=== PATIENT | female | born 1960 | race Caucasian/White ===

== ENCOUNTER 2016-10-08 15:06 | Emergency (ER) | payer BC ==
--- NOTE | 2016-10-08 15:16 | EDM.PDOC ---
ED HPI GENERAL MEDICAL PROBLEM - General Chief Complaint: Abdominal Pain Stated Complaint: ABD PAINS, [id number] Time Seen by Provider: 10/08/16 15:15 Source of Information: Reports: Patient, Old Records, RN, RN Notes Reviewed History Limitations: Reports: No Limitations - History of Present Illness INITIAL COMMENTS - FREE TEXT/NARRATIVE: Arrives from home by POV with complaint of onset of lower abdominal pain yesterday. Patient thought that it could be from constipation so she took a laxative and had a large BM, but the pain did not subside. Today she developed chills and later a fever of 101F. Patient had a cough and congestion last week but was getting better. Denies urinary symptoms, diarrhea, blood or mucus in the stool or vomiting. Admits to nausea. Location: Reports: Abdomen Quality: Reports: Ache Severity: Severe Improves with: Reports: None Worsens with: Reports: None Associated Symptoms: Reports: No Other Symptoms Lower Abdomen Pain Score (Numeric/FACES): 10 - Related Data Allergies Allergy/AdvReac Type Severity Reaction Status Date / Time No Known Allergies Allergy Verified 10/08/16 15:12 Home Meds: Home Meds . [No Known Home Meds] 10/08/16 [History] Past Medical History Gastrointestinal History: Reports: Diverticulosis Endocrine/Metabolic History: Reports: Obesity/BMI 30+ - Past Surgical History GI Surgical History: Reports: Colonoscopy Social & Family History - Alcohol Use Days Per Week of Alcohol Use: 0 - Recreational Drug Use Recreational Drug Use: No ED ROS GENERAL - Review of Systems Review Of Systems: ROS reveals no pertinent complaints other than HPI. ED EXAM, GI/ABD - Physical Exam Exam: See Below Exam Limited By: No Limitations General Appearance: Alert, WD/WN, Obese Eyes: Bilateral: Normal Appearance Ears: Normal External Exam, Normal Canal, Hearing Grossly Normal, Normal TMs Nose: Normal Inspection, Normal Mucosa, No Blood Throat/Mouth: Normal Inspection, Normal Lips, Normal Teeth, Normal Gums, Normal Oropharynx, Normal Voice, No Airway Compromise Head: Atraumatic, Normocephalic Neck: Normal Inspection, Supple, Non-Tender, Full Range of Motion Respiratory/Chest: Other (occSIONAL DRY COUGH, MILD.) Cardiovascular: Normal Peripheral Pulses, Regular Rate, Rhythm, No Edema, No Gallop, No JVD, No Murmur, No Rub GI/Abdominal: Other (generalized acute tenderness to lower abdomen. Normal bowel sounds. No distention, guarding or rebound tenderness. No rigidity.) (Female) Exam: Deferred Rectal (Female) Exam: Deferred Back Exam: Normal Inspection, Full Range of Motion, NT Extremities: Normal Inspection, Normal Range of Motion, Non-Tender, Normal Capillary Refill, No Pedal Edema Neurological: Alert, Oriented, CN II-XII Intact, Normal Cognition, Normal Gait, Normal Reflexes, No Motor/Sensory Deficits Psychiatric: Normal Affect, Normal Mood Skin Exam: Warm, Dry, Intact, Normal Color, No Rash Course - Vital Signs Last Recorded V/S: Last Vital Signs Temp 38.7 C H 10/08/16 17:43 Pulse 90 10/08/16 17:43 Resp 18 10/08/16 17:43 BP 134/59 L 10/08/16 17:43 Pulse Ox 95 10/08/16 17:43 - Orders/Labs/Meds Orders: Active Orders 24 hr Category Date Time Status Peripheral IV Care [RC] . DIRECTED Care 10/08/16 15:37 Active Sodium Chloride 0.9% [Saline Flush] Med 10/08/16 15:36 Active 10 ml FLUSH ASDIRECTED PRN Peripheral IV Insertion Adult [OM.PC] Stat Oth 10/08/16 15:37 Ordered Medication Orders Sodium Chloride (Saline Flush) 10 ml FLUSH ASDIRECTED PRN PRN Reason: Keep Vein Open Last Admin: 10/08/16 15:47 Dose: 10 ml Labs: Laboratory Tests 10/08/16 10/08/16 10/08/16 Range/Units 15:39 15:39 15:39 WBC 11.6 H (5.0-10.0) 10^3/uL RBC 4.49 (4.2-5.4) 10^6/uL Hgb 12.6 (12.0-16.0) g/dL Hct 39.8 (37.0-47.0) % MCV 88.6 (80-100) fL MCH 28.1 (27.0-34.0) pg MCHC 31.7 L (33.0-35.0) g/dL Plt Count 261 (150-450) 10^3/uL Neut % (Auto) 79.8 H (42.2-75.2) % Lymph % (Auto) 10.5 L (20.5-50.1) % [place] % (Auto) 7.7 (2-8) % Eos % (Auto) 1.7 (1.0-3.0) % Baso % (Auto) 0.3 (0.0-1.0) % Sodium 139 (135-145) mmol/L Potassium 4.2 (3.6-5.0) mmol/L Chloride 104 (101-111) mmol/L Carbon Dioxide 26.0 (21.0-31.0) mmol/L Anion Gap 13.2 BUN 14 (7-18) mg/dL Creatinine 0.9 (0.6-1.3) mg/dL Est Cr Clr Drug Dosing 53.89 mL/min Estimated GFR (MDRD) > 60 BUN/Creatinine Ratio 15.55 Glucose 114 H (74-105) mg/dL Lactic Acid 1.1 (0.5-2.2) mmol/L Calcium 8.9 (8.4-10.2) mg/dl Total Bilirubin 0.7 (0.2-1.0) mg/dL AST 22 (10-42) IU/L ALT 29 (10-60) IU/L Alkaline Phosphatase 60 (42-121) IU/L Total Protein 6.8 (6.7-8.2) g/dl Albumin 3.8 (3.2-5.5) g/dl Globulin 3.0 Albumin/Globulin Ratio 1.27 Amylase 33 (28-100) U/L Lipase 15 L (22-51) U/L Urine Color (YELLOW) Urine Appearance (CLEAR) Urine pH (5.0-9.0) Ur Specific [place] (1.005-1.030) Urine Protein (NEGATIVE) Urine Glucose (UA) (NEGATIVE) Urine Ketones (NEGATIVE) Urine Occult Blood (NEGATIVE) Urine Nitrite (NEGATIVE) Urine Bilirubin (NEGATIVE) Urine Urobilinogen (0.2-1.0) mg/dL Ur Leukocyte Esterase (NEGATIVE) Urine RBC /HPF Urine WBC (0-5/HPF) /HPF Ur Epithelial Cells /HPF Amorphous Sediment (0/HPF) /HPF Urine Bacteria (0-FEW/HPF) /HPF Urine Mucus /LPF 10/08/16 Range/Units 16:58 WBC (5.0-10.0) 10^3/uL RBC (4.2-5.4) 10^6/uL Hgb (12.0-16.0) g/dL Hct (37.0-47.0) % MCV (80-100) fL MCH (27.0-34.0) pg MCHC (33.0-35.0) g/dL Plt Count (150-450) 10^3/uL Neut % (Auto) (42.2-75.2) % Lymph % (Auto) (20.5-50.1) % [place] % (Auto) (2-8) % Eos % (Auto) (1.0-3.0) % Baso % (Auto) (0.0-1.0) % Sodium (135-145) mmol/L Potassium (3.6-5.0) mmol/L Chloride (101-111) mmol/L Carbon Dioxide (21.0-31.0) mmol/L Anion Gap BUN (7-18) mg/dL Creatinine (0.6-1.3) mg/dL Est Cr Clr Drug Dosing mL/min Estimated GFR (MDRD) BUN/Creatinine Ratio Glucose (74-105) mg/dL Lactic Acid (0.5-2.2) mmol/L Calcium (8.4-10.2) mg/dl Total Bilirubin (0.2-1.0) mg/dL AST (10-42) IU/L ALT (10-60) IU/L Alkaline Phosphatase (42-121) IU/L Total Protein (6.7-8.2) g/dl Albumin (3.2-5.5) g/dl Globulin Albumin/Globulin Ratio Amylase (28-100) U/L Lipase (22-51) U/L Urine Color Yellow (YELLOW) Urine Appearance Slightly cloudy (CLEAR) Urine pH 5.5 (5.0-9.0) Ur Specific [place] 1.015 (1.005-1.030) Urine Protein Negative (NEGATIVE) Urine Glucose (UA) Negative (NEGATIVE) Urine Ketones Negative (NEGATIVE) Urine Occult Blood Trace-intact H (NEGATIVE) Urine Nitrite Negative (NEGATIVE) Urine Bilirubin Negative (NEGATIVE) Urine Urobilinogen 0.2 (0.2-1.0) mg/dL Ur Leukocyte Esterase Negative (NEGATIVE) Urine RBC 0-5 /HPF Urine WBC 5-10 H (0-5/HPF) /HPF Ur Epithelial Cells Moderate H /HPF Amorphous Sediment Few (0/HPF) /HPF Urine Bacteria Few (0-FEW/HPF) /HPF Urine Mucus Few H /LPF Meds: Medications Generic Name Dose Route Start Last Admin Trade Name Chelsea PRN Reason Stop Dose Admin Sodium Chloride 10 ml 10/08/16 15:36 10/08/16 15:47 Saline Flush FLUSH 10 ml ASDIRECTED PRN Administration Keep Vein Open Discontinued Medications Generic Name Dose Route Start Last Admin Trade Name Chelsea PRN Reason Stop Dose Admin Acetaminophen 650 mg 10/08/16 18:02 Tylenol PO 10/08/16 18:03 NOW ONE Hydromorphone HCl 1 mg 10/08/16 15:37 10/08/16 15:46 Dilaudid IVPUSH 10/08/16 15:38 1 mg ONETIME ONE Administration Sodium Chloride 1,000 mls @ 999 mls/hr 10/08/16 15:37 10/08/16 15:45 Normal Saline IV 10/08/16 16:37 999 mls/hr .BOLUS ONE Administration Piperacillin Sod/Tazobactam 100 mls @ 200 mls/hr 10/08/16 17:53 Sod 3.375 gm/ Sodium Chloride IV 10/08/16 18:22 ONETIME ONE Iopamidol 100 ml 10/08/16 16:27 10/08/16 17:02 Isovue-300 (61%) IVPUSH 10/08/16 16:28 100 ml ONETIME ONE Administration Ondansetron HCl 4 mg 10/08/16 15:37 10/08/16 15:46 Zofran IV 10/08/16 15:38 4 mg ONETIME ONE Administration - Radiology Interpretation Free Text/Narrative:: CT scan abdomen and pelvis: Per rad report reveals diverticulosis and bowel wall thickening along the rectosigmoid colon. Mild pericolonic inflammatory changes. No evidence of perforation or abscess formation or bleeding. Findings consistent with acute diverticulitis. Departure - Departure Time of Disposition: 19:15 Disposition: Home, Self-Care 01 Condition: Fair Clinical Impression: Diverticulosis of intestine without perforation or abscess - Discharge Information Instructions: Diverticulitis, [id number] Forms: ED Department Discharge Additional Instructions: RX: Zofran 4mg. RX: Cipro 500mg. RX: Flagyl 500mg. RX: Hydrocodone APAP 5mg/325mg. *no driving while under the influence of this medication. Follow up in clinic in 3 days. Return to ER if worse at any time. - My Orders Last 24 Hours: My Active Orders 10/08/16 15:36 Sodium Chloride 0.9% [Saline Flush] 10 ml FLUSH ASDIRECTED PRN 10/08/16 15:37 Peripheral IV Care [RC] . DIRECTED Peripheral IV Insertion Adult [OM.PC] Stat - Assessment/Plan Last 24 Hours: My Active Orders 10/08/16 15:36 Sodium Chloride 0.9% [Saline Flush] 10 ml FLUSH ASDIRECTED PRN 10/08/16 15:37 Peripheral IV Care [RC] . DIRECTED Peripheral IV Insertion Adult [OM.PC] Stat
[2016-10-08] MEDS ORDERED: Sodium Chloride 0.9% 10 ML Syringe FLUSH PRN (15:36)
[2016-10-08] MEDS ORDERED: Ondansetron 4 MG/2 ML SDV IV ONE (15:37)
[2016-10-08] MEDS ORDERED: HYDROmorphone 1 MG/ML Syringe IVPUSH ONE (15:37)
[2016-10-08] MEDS ORDERED: Sodium Chloride 0.9% 1,000 ML IV ONE (15:37)
[2016-10-08 16:15] LABS: CHLORIDE,CL 104 mmol/L (101-111); SODIUM,NA 139 mmol/L (135-145)
[2016-10-08] MEDS ORDERED: Iopamidol 612 MG/ML 100 ML Bottle IVPUSH ONE (16:27)
[2016-10-08 17:43] VITALS: BP 134/59
[2016-10-08] MEDS ORDERED: Piperacillin/Tazobactam 3.375 GM in Sodium Chloride 0.9% 100 ML IV ONE (17:53)
[2016-10-08] MEDS ORDERED: Acetaminophen 325 MG Tab PO ONE (18:02)
== END 2016-10-08 19:15 | disposition home or self-care (01) ==
LOC: DL.ED 15:06
DX: K57.32 Diverticulitis of large intestine without perforation or abscess without bleeding (principal)
CPT/HCPCS: 36415; 71020; 74177; 80053; 81001; 82150; 83605; 83690; 85025; 96361; 96365; 96375; 99284; A9270; J1170; J2405; J2543; J7030; J7050; Q9967

== ENCOUNTER 2016-12-17 07:00 | Day surgery (SDC) | payer BC ==
[~2016-12-17 07:00] MED LIST: Dextrose 5%-0.45% NaCl 1,000 ML IV SCH; Midazolam 1 MG/ML 2 ML SDV ONE; Sodium Chloride 0.9% 10 ML Syringe FLUSH PRN; fentaNYL 100 MCG/2 ML SDV ONE
[2016-12-17] MEDS ORDERED: Midazolam 1 MG/ML 2 ML SDV IV ONE ×3 (07:01→08:01)
[2016-12-17] MEDS ORDERED: fentaNYL 100 MCG/2 ML SDV IV ONE ×2 (07:01→07:59)
--- NOTE | 2016-12-17 09:01 | OR ---
DATE: 12/17/2016 PROCEDURE: Esophagogastroduodenoscopy and multiple pinch biopsies. INSTRUMENT USED: GIF-H180 Olympus video panendoscope. PREMEDICATIONS: No oral topical anesthesia used. Fentanyl 100 mcg intravenous, Versed 2 mg intravenous. Nasal O2 cannula. The procedure was done under pulse oximetry, BP recording, and cardiac sonographer. INDICATION: The patient with persistent longstanding heartburn, unexplained and not responsive to medical measures. Esophagogastroduodenoscopy is performed for detection of any active erosive lesions, Garrido esophagus, and/or malignancy also under consideration, H. pylori status to be determined, endoscopic hemostasis therapy if needed. DESCRIPTION OF PROCEDURE: The scope was passed with ease. Adequate visualization of the esophagus was made from proximal to distal areas. No upper esophageal lesions identified. No distal esophageal stricture. No uphill or downhill esophageal varices. No Kena-Salguero tear. Grade A erosive changes were noted by [place] criteria. No esophageal polyp or tumor mass identified. [place] columnar epithelium was noted at around 35 cm distal to the oral verge, 4-quadrant biopsies were obtained and sent for any histopathologic evidence of intestinal metaplasia. No proximal gastric varices noted. Gastric fundus examination showed 3 mm sized diminutive benign appearing polyp. No gastric ulcer, malignant mass, or vascular ectasia identified. Multiple pinch biopsies were obtained from the gastric antrum and proximal body and sent for PyloriTek test for H. pylori and histopathology. Duodenal bulb showed no ulcer. Visualized second part of the duodenum was unremarkable. Some pylorospasm was noted. No bleeding was noted from any of the visualized areas at the completion of examination. Photographs were taken of the duodenal bulb, gastric antrum, fundus, and distal esophagus. IMPRESSION: 1. Diminutive gastric fundus polyp. 2. Grade A gastroesophageal reflux disease. The patient tolerated the procedure well. [facility] /[id number]
[2016-12-17 10:37] VITALS: BP 94/55
== END 2016-12-17 10:17 | disposition home or self-care (01) ==
LOC: DL.ENDO 07:00
PROVIDERS: ATTEND Internal Medicine Gastroenterology
DX: K29.50 Unspecified chronic gastritis without bleeding (principal); K21.9 Gastro-esophageal reflux disease without esophagitis; E66.9 Obesity, unspecified
CPT/HCPCS: 43239; 87077; J7042; J2250; J3010

== ENCOUNTER 2016-12-19 05:48 | Day surgery (SDC) | payer BC ==
[2016-12-19] MEDS ORDERED: fentaNYL 100 MCG/2 ML SDV IV ONE ×3 (05:49→07:02)
[2016-12-19] MEDS ORDERED: Midazolam 1 MG/ML 2 ML SDV IV ONE ×6 (05:49→07:08)
[2016-12-19] MEDS ORDERED: fentaNYL 100 MCG/2 ML SDV ONE (06:15)
[2016-12-19] MEDS ORDERED: Midazolam 1 MG/ML 2 ML SDV ONE (06:24)
[2016-12-19] MEDS ORDERED: Sodium Chloride 0.9% 10 ML Syringe FLUSH PRN (07:49)
--- NOTE | 2016-12-19 07:49 | OR ---
DATE: 12/19/2016 PROCEDURE: Total colonoscopy. INSTRUMENT USED: CF-H180AL Olympus video colonoscope. PREMEDICATIONS: Fentanyl 100 mcg intravenous, Versed 3 mg intravenous. Nasal O2 cannula. The procedure was done under pulse oximetry, BP recording, and director inbound sales. INDICATION: The patient with recent subacute colonic diverticulitis, treated. Recent CT scan of the abdomen and pelvis suggestive of thickened sigmoid wall, rule out malignancy. Colonoscopy examination is done for detection of any polypoid lesions and removal, endoscopic hemostasis therapy if needed. DESCRIPTION OF PROCEDURE: Initial rectal exam was unremarkable. Rigid anoscopy was normal. The colonoscope was passed with ease. Numerous scattered diverticula were noted in the distal left colon along with some deformity. The scope was passed with ease up to the ileocecal area, photographs were taken of the normal-appearing cecum, identified by landmarks of appendiceal orifice and double-bulged ileocecal folds. No bleeding was noted from any of the visualized areas at the commencement of the examination. No stricture. No vascular ectasia. No large isolated ulcerations seen. No evidence of diffuse inflammatory bowel disease in the form of friability, contact bleeding, or ulcerations. No polyp or tumor mass identified. Probing the proximal sides of folds and flexures, using adequate distention and clearing of the stool material, withdrawal of the scope was made, cecum to rectum time over 6 minutes. No bleeding was noted from any of the visualized areas at the completion of examination. IMPRESSION: Diverticulosis. The patient tolerated the procedure well. [facility] /[id number]
[2016-12-19] MEDS ORDERED: Dextrose 5%-0.45% NaCl 1,000 ML IV SCH (08:00)
[2016-12-19 10:20] VITALS: BP 113/62
== END 2016-12-19 09:20 | disposition home or self-care (01) ==
LOC: DL.ENDO 05:48
PROVIDERS: ATTEND Internal Medicine Gastroenterology
DX: K57.30 Diverticulosis of large intestine without perforation or abscess without bleeding (principal); E66.01 Morbid (severe) obesity due to excess calories; Z98.890 Other specified postprocedural states
CPT/HCPCS: 45378; J7042; J2250; J3010

== ENCOUNTER 2021-02-07 10:44 | Inpatient (IN) | payer OTHER ==
--- NOTE | 2021-02-07 11:31 | EDM.PDOC ---
ED HPI GENERAL MEDICAL PROBLEM - General Chief Complaint: Respiratory Problem Stated Complaint: COVID Time Seen by Provider: 02/07/21 11:30 Source of Information: Reports: Patient, RN, RN Notes Reviewed History Limitations: Reports: No Limitations - History of Present Illness INITIAL COMMENTS - FREE TEXT/NARRATIVE: Pt present to ER after calling the [facility] because she feels more short of breath. Was Dx with COVID on the 02/01/21. She reports the symptoms of fever, night sweats, body aches, and shortness of breath worsened on the 02/05/21, received BAM and steroids on the and required O2 during treatment. Admits to nausea and diarrhea. Onset: Gradual Duration: Week(s): (1), Constant, Getting Worse Location: Reports: Chest, Generalized Severity: Severe Improves with: Reports: None Worsens with: Reports: None Context: Reports: Sick Contact Associated Symptoms: Reports: No Other Symptoms - Related Data Allergies Allergy/AdvReac Type Severity Reaction Status Date / Time No Known Allergies Allergy Verified 02/02/21 13:05 Home Meds: Home Meds Benzonatate 100 mg PO Q8H PRN 02/02/21 [History] Pseudoephedrine HCl [Sudafed] 30 mg PO DAILY 02/02/21 [History] methylPREDNISolone [Methylprednisolone] 4 mg PO DAILY 02/02/21 [History] Past Medical History - Past Health History Medical/Surgical History: Denies Medical/Surgical History HEENT History: Reports: Impaired Vision Cardiovascular History: Reports: None Respiratory History: Reports: None Gastrointestinal History: Reports: Diverticulosis Genitourinary History: Reports: None MEDIA RELATIONS COORDINATOR History: Reports: Musculoskeletal History: Reports: None Neurological History: Reports: None Psychiatric History: Reports: None Endocrine/Metabolic History: Reports: Obesity/BMI 30+ Hematologic History: Reports: None Immunologic History: Reports: None Oncologic (Cancer) History: Reports: None Dermatologic History: Reports: None - Infectious Disease History Infectious Disease History: Reports: Chicken Pox, Measles Other Infectious Disease History: COVID POSITIVE - Past Surgical History Head Surgeries/Procedures: Reports: None HEENT Surgical History: Reports: None Cardiovascular Surgical History: Reports: None Respiratory Surgical History: Reports: None GI Surgical History: Reports: Colonoscopy, EGD Female Surgical History: Reports: Other (See Below) Other Female Surgeries/Procedures: endometrial biopsy Endocrine Surgical History: Reports: None Neurological Surgical History: Reports: None Musculoskeletal Surgical History: Reports: None Oncologic Surgical History: Reports: None Social & Family History - Family History Family Medical History: No Pertinent Family History - Caffeine Use Caffeine Use: Reports: Coffee Caffeine Use Comment: 2 cups daily - Living Situation & Occupation Living situation: Reports: , with Spouse ED ROS GENERAL - Review of Systems Review Of Systems: Comprehensive ROS is negative, except as noted in HPI. ED EXAM, GENERAL - Physical Exam Exam: See Below Exam Limited By: No Limitations General Appearance: Alert, Mild Distress, Obese, Other (Acutely ill appearing) Eye Exam: Bilateral Eye: Normal Inspection Nose: Normal Inspection, No Blood Throat/Mouth: Normal Lips, Normal Voice, No Airway Compromise. No: Perioral Cyanosis Head: Atraumatic, Normocephalic Neck: Normal Inspection, Supple, Non-Tender, Full Range of Motion Respiratory/Chest: No Respiratory Distress, No Accessory Muscle Use, Decreased Breath Sounds, Wheezing. No: Crackles, Rales, Rhonchi Cardiovascular: Regular Rate, Rhythm GI/Abdominal: Normal Bowel Sounds, Soft, Non-Tender, Other (Benign obese abdomen) Back Exam: Normal Inspection Extremities: Normal Inspection, Non-Tender, Normal Capillary Refill Neurological: Alert, Oriented, CN II-XII Intact, Normal Cognition, No Motor/Sensory Deficits, Other (Generalized weakness) Psychiatric: Normal Mood, Flat Affect Skin Exam: Warm, Dry, Intact, Normal Color, No Rash #1 Interpretation EKG Date: 02/07/21 Time: 12:18 Rhythm: Other (SR) Rate (Beats/Min): 74 [place]: Normal P-Wave: Present QRS: Normal ST-T: Normal QT: Normal Comparison: NA - No Prior EKG Course - Vital Signs Last Recorded V/S: Last Vital Signs Temp 99.5 F 02/07/21 11:53 Pulse 78 02/07/21 11:53 Resp 24 H 02/07/21 11:53 BP 115/58 L 02/07/21 11:53 Pulse Ox 90 L 02/07/21 11:53 - Orders/Labs/Meds Orders: Active Orders 24 hr Category Date Time Status Peripheral IV Care [RC] . DIRECTED Care 02/07/21 11:59 Active RT Aerosol Therapy [RC] ASDIRECTED Care 02/07/21 11:59 Active Chest w Cont [CT] Stat Exams 02/07/21 12:57 Taken CULTURE BLOOD [BC] Stat Lab 02/07/21 12:53 Received CULTURE BLOOD [BC] Stat Lab 02/07/21 13:01 Received Blood Culture x2 Reflex Set [OM.PC] Stat Oth 02/07/21 11:52 Ordered Labs: Laboratory Tests 02/07/21 02/07/21 02/07/21 Range/Units 11:25 11:25 11:25 WBC 11.0 H (5.0-10.0) 10^3/uL RBC 4.76 (4.2-5.4) 10^6/uL Hgb 13.4 (12.0-16.0) g/dL Hct 41.7 (37.0-47.0) % MCV 87.6 (80-100) fL MCH 28.2 (27.0-34.0) pg MCHC 32.1 L (33.0-35.0) g/dL Plt Count 364 D (150-450) 10^3/uL Neut % (Auto) 77.6 H (42.2-75.2) % Lymph % (Auto) 11.5 L (20.5-50.1) % [place] % (Auto) 10.4 H (2-8) % Eos % (Auto) 0.4 L (1.0-3.0) % Baso % (Auto) 0.1 (0.0-1.0) % Add Manual Diff Yes Neutrophils % (Manual) 76 H (42-75) % Band Neutrophils % 1 % Lymphocytes % (Manual) 16 L (20-50) % Monocytes % (Manual) 7 (2-8) % PT 10.2 (9.0-12.0) SEC INR 1.0 (0.9-1.2) D-Dimer, Quantitative 1340 H (0-400) ng/mL Sodium 140 (136-145) mmol/L Potassium 4.2 (3.5-5.1) mmol/L Chloride 102 (98-107) mmol/L Carbon Dioxide 29 (21-32) mmol/L Anion Gap 13.2 H (7-13) mEq/L BUN 13 (7-18) mg/dL Creatinine 0.78 (0.55-1.02) mg/dL Est Cr Clr Drug Dosing 56.43 mL/min Estimated GFR (MDRD) > 60 BUN/Creatinine Ratio 16.7 (No establ ref range) Glucose 102 H (70-99) mg/dL Lactic Acid (0.4-2.0) mmol/L Calcium 8.5 (8.5-10.1) mg/dL Magnesium 2.4 (1.8-2.4) mg/dL Ferritin (8-252) mg/mL Total Bilirubin 0.6 (0.2-1.0) mg/dL AST 26 (15-37) U/L ALT 56 (14-59) U/L Alkaline Phosphatase 59 (46-116) U/L Lactate Dehydrogenase 295 H (81-234) U/L Troponin I High Sens 6 (<=51) pg/mL C-Reactive Protein 22.1 H (0.0-0.9) mg/dL Total Protein 7.2 (6.4-8.2) g/dL Albumin 2.6 L (3.4-5.0) g/dL Globulin 4.6 Albumin/Globulin Ratio 0.57 Amylase 30 (25-115) U/L 02/07/21 02/07/21 Range/Units 11:25 11:25 WBC (5.0-10.0) 10^3/uL RBC (4.2-5.4) 10^6/uL Hgb (12.0-16.0) g/dL Hct (37.0-47.0) % MCV (80-100) fL MCH (27.0-34.0) pg MCHC (33.0-35.0) g/dL Plt Count (150-450) 10^3/uL Neut % (Auto) (42.2-75.2) % Lymph % (Auto) (20.5-50.1) % [place] % (Auto) (2-8) % Eos % (Auto) (1.0-3.0) % Baso % (Auto) (0.0-1.0) % Add Manual Diff Neutrophils % (Manual) (42-75) % Band Neutrophils % % Lymphocytes % (Manual) (20-50) % Monocytes % (Manual) (2-8) % PT (9.0-12.0) SEC INR (0.9-1.2) D-Dimer, Quantitative (0-400) ng/mL Sodium (136-145) mmol/L Potassium (3.5-5.1) mmol/L Chloride (98-107) mmol/L Carbon Dioxide (21-32) mmol/L Anion Gap (7-13) mEq/L BUN (7-18) mg/dL Creatinine (0.55-1.02) mg/dL Est Cr Clr Drug Dosing mL/min Estimated GFR (MDRD) BUN/Creatinine Ratio (No establ ref range) Glucose (70-99) mg/dL Lactic Acid 1.0 (0.4-2.0) mmol/L Calcium (8.5-10.1) mg/dL Magnesium (1.8-2.4) mg/dL Ferritin 1409 H (8-252) mg/mL Total Bilirubin (0.2-1.0) mg/dL AST (15-37) U/L ALT (14-59) U/L Alkaline Phosphatase (46-116) U/L Lactate Dehydrogenase (81-234) U/L Troponin I High Sens (<=51) pg/mL C-Reactive Protein (0.0-0.9) mg/dL Total Protein (6.4-8.2) g/dL Albumin (3.4-5.0) g/dL Globulin Albumin/Globulin Ratio Amylase (25-115) U/L Meds: Medications Discontinued Medications Generic Name Dose Route Start Last Admin Trade Name Freq PRN Reason Stop Dose Admin Albuterol/Ipratropium 3 ml 02/07/21 11:59 02/07/21 12:25 Albuterol/Ipratropium 3.0-0.5 Mg/3 Ml Neb Soln NEB 02/07/21 12:00 3 ml ONETIME ONE Administration Dexamethasone 6 mg 02/07/21 12:16 02/07/21 12:40 Dexamethasone 4 Mg/Ml Sdv IVPUSH 02/07/21 12:17 6 mg ONETIME ONE Administration Iopamidol 100 ml 02/07/21 12:57 02/07/21 14:25 Iopamidol 755 Mg/Ml 100 Ml Bottle IVPUSH 02/07/21 12:58 80 ml ONETIME ONE Administration Promethazine HCl/Codeine 10 ml 02/07/21 12:16 02/07/21 12:40 Codeine/Promethazine 10-6.25 Mg/5 Ml Syrup 5 Ml Ud Cup PO 02/07/21 12:17 10 ml ONETIME ONE Administration - Radiology Interpretation Free Text/Narrative:: CT PE Study: no PE, extensive COVID pneumonia appearance per rad. report. - Re-Assessments/Exams Free Text/Narrative Re-Assessment/Exam: 02/07/21 15:[address] Blackmon for COVID pneumonia with hypoxia. Departure - Departure Time of Disposition: 15:51 (admitted to [facility]) Disposition: Admitted As Inpatient 64 Condition: Fair, Serious Clinical Impression: Pneumonia due to COVID-19 virus Diarrhea Qualifiers: Diarrhea type: unspecified type Qualified Code(s): R19.7 - Diarrhea, unspecified - Discharge Information *PRESCRIPTION DRUG MONITORING PROGRAM REVIEWED*: Not Applicable *COPY OF PRESCRIPTION DRUG MONITORING REPORT IN PATIENT WILL: Not Applicable Forms: ED Department Discharge Sepsis Event Note (ED) - Focused Exam Vital Signs: Vital Signs Temp Pulse Resp BP Pulse Ox 02/07/21 11:53 99.5 F 78 24 H 115/58 L 90 L - My Orders Last 24 Hours: My Active Orders 02/07/21 11:52 Blood Culture x2 Reflex Set [OM.PC] Stat 02/07/21 11:59 Peripheral IV Care [RC] . DIRECTED RT Aerosol Therapy [RC] ASDIRECTED 02/07/21 12:53 CULTURE BLOOD [BC] Stat 02/07/21 12:57 Chest w Cont [CT] Stat 02/07/21 13:01 CULTURE BLOOD [BC] Stat - Assessment/Plan Last 24 Hours: My Active Orders 02/07/21 11:52 Blood Culture x2 Reflex Set [OM.PC] Stat 02/07/21 11:59 Peripheral IV Care [RC] . DIRECTED RT Aerosol Therapy [RC] ASDIRECTED 02/07/21 12:53 CULTURE BLOOD [BC] Stat 02/07/21 12:57 Chest w Cont [CT] Stat 02/07/21 13:01 CULTURE BLOOD [BC] Stat
[2021-02-07] MEDS ORDERED: Albuterol/Ipratropium 3.0-0.5 MG/3 ML Neb Soln NEB ONE (11:59)
[2021-02-07] MEDS ORDERED: Codeine/Promethazine 10-6.25 MG/5 ML Syrup 5 ML UD Cup PO ONE (12:16)
[2021-02-07] MEDS ORDERED: Dexamethasone 4 MG/ML SDV IVPUSH ONE (12:16)
[2021-02-07 12:27] LABS: ANION GAP 13.2 mEq/L (7-13); CHLORIDE,CL 102 mmol/L (98-107); SODIUM,NA 140 mmol/L (136-145)
[2021-02-07] MEDS ORDERED: Iopamidol 755 Mg/ML 100 ML Bottle IVPUSH ONE (12:57)
--- NOTE | 2021-02-07 15:55 | CT ---
EXAMINATION: Chest w Cont SEX: Female AGE: 60 years CLINICAL HISTORY: 60-year-old female with shortness of breath (COVID+) and elev. D-dimer. Susp. PE. Scan technique: Volume acquisition of data from the chest (bony thorax, lungs and mediastinum) obtained during the intravenous administration 5 cc nonionic Isovue 370 contrast while patient was lying supine on the Siemens multislice scanner [place], [place]. All data archived in the PACS system for storage, reformatting and study (lung, mediastinal, soft tissue and bone windows). Interpretation: Abnormal. 1. *Multiple "groundglass" interstitial lung densities identified in the periphery throughout both lung schultz having radiographic appearance most consistent with COVID 19 pneumonia. 2. No alveolar infiltrates, air bronchograms, underlying lymphadenopathy or pleural effusions. 3. *No intraluminal filling defects or thrombus identified in the main pulmonary artery circulation. No focal lobar oligemia. 4. Normal cardiac silhouette. No pericardial effusions. Normal thoracic aorta. No aneurysm or dissection. 5. No pulmonary vascular congestion, alveolar edema or dependent pleural effusion. 6. Osteopenia. Mild kyphosis. Hypertrophic spondylosis dorsal spine. 7. No pneumothorax or pneumomediastinum. CONCLUSION: Multilobar vasculitis and/or viral pneumonia. No sign of heart failure, pulmonary embolism/infarct, or alveolar pneumonia.
[2021-02-07] MEDS ORDERED: Temazepam 15 MG Cap PO PRN (17:29)
[2021-02-07] MEDS ORDERED: Sodium Chloride 0.9% 10 ML Syringe FLUSH PRN (17:29)
[2021-02-07] MEDS ORDERED: oxyCODONE 5 MG Tab PO PRN (17:29)
[2021-02-07] MEDS ORDERED: Ondansetron 4 MG Tab.DIS PO PRN (17:29)
[2021-02-07] MEDS ORDERED: Docusate Sodium 100 MG Cap PO PRN (17:29)
--- NOTE | 2021-02-07 17:35 | PCM.HP ---
H&P History of Present Illness - General Date of Service: 02/07/21 Admit Problem/Dx: Admission Diagnosis/Problem Admission Diagnosis/Problem Pneumonia Source of Information: Patient - History of Present Illness Initial Comments - Free Text/Narative: Developed chills, cough, sob, body aches on 01/30. Tested positive for covid on 02/01 Symptoms worsened and received BAM, steroids on 02/05/21 Presented to ER with worse sob Noted to have hypoxemia with 83% o2 sat on RA - Related Data Allergies/Adverse Reactions: Allergies Allergy/AdvReac Type Severity Reaction Status Date / Time No Known Allergies Allergy Verified 02/07/21 16:32 Home Medications: Home Meds Benzonatate 100 mg PO Q8H PRN 02/02/21 [History] Pseudoephedrine HCl [Sudafed] 30 mg PO DAILY 02/02/21 [History] methylPREDNISolone [Methylprednisolone] 4 mg PO DAILY 02/02/21 [History] Fluticasone Propion/Salmeterol [Fluticasone-Salmeterol 250-50] 1 puff INH BID 02/07/21 [History] Omeprazole 20 mg PO DAILY 02/07/21 [History] Past Medical History - Past Health History Medical/Surgical History: Denies Medical/Surgical History HEENT History: Reports: Impaired Vision Cardiovascular History: Reports: None Respiratory History: Reports: None Gastrointestinal History: Reports: Diverticulosis Genitourinary History: Reports: None 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: Musculoskeletal History: Reports: None Neurological History: Reports: None Psychiatric History: Reports: None Endocrine/Metabolic History: Reports: Obesity/BMI 30+ Hematologic History: Reports: None Immunologic History: Reports: None Oncologic (Cancer) History: Reports: None Dermatologic History: Reports: None - Infectious Disease History Infectious Disease History: Reports: Chicken Pox, Measles Other Infectious Disease History: COVID POSITIVE - Past Surgical History Head Surgeries/Procedures: Reports: None HEENT Surgical History: Reports: None Cardiovascular Surgical History: Reports: None Respiratory Surgical History: Reports: None GI Surgical History: Reports: Colonoscopy, EGD Female Surgical History: Reports: Other (See Below) Other Female Surgeries/Procedures: endometrial biopsy Endocrine Surgical History: Reports: None Neurological Surgical History: Reports: None Musculoskeletal Surgical History: Reports: None Oncologic Surgical History: Reports: None Social & Family History - Family History Family Medical History: No Pertinent Family History - Tobacco Use Tobacco Use Status *Q: Never Tobacco User - Caffeine Use Caffeine Use: Reports: Tea Caffeine Use Comment: 2 cups daily - Alcohol Use Days Per Week of Alcohol Use: 1 Number of Drinks Per Day: 1 Total Drinks Per Week: 1 - Recreational Drug Use Recreational Drug Use: No - Living Situation & Occupation Living situation: Reports: , with Spouse H&P Review of Systems - Review of Systems: Review Of Systems: See Below General: Reports: Fever, Chills, Malaise, Weakness Pulmonary: Reports: Shortness of Breath. Denies: Wheezing Cardiovascular: Denies: Chest Pain, Palpitations, Edema Gastrointestinal: Reports: Diarrhea, Nausea. Denies: Abdominal Pain Psychiatric: Denies: Confusion Exam - Exam Exam: See Below - Vital Signs Vital Signs: Last Vital Signs Temp 97.6 F 02/07/21 17:22 Pulse 80 02/07/21 17:22 Resp 22 H 02/07/21 17:22 BP 115/49 L 02/07/21 17:22 Pulse Ox 93 L 02/07/21 17:22 Weight: 229 lb - Exam Quality Assessment: Supplemental Oxygen (100% VMASk) General: Alert, Oriented Neck: Supple Lungs: Rhonchi (b/l ) Cardiovascular: Regular Rate, Regular Rhythm Extremities: No Pedal Edema - Patient Data Lab Results Last 24 hrs: Laboratory Results - last 24 hr 02/07/21 02/07/21 02/07/21 Range/Units 11:25 11:25 11:25 WBC 11.0 H (5.0-10.0) 10^3/uL RBC 4.76 (4.2-5.4) 10^6/uL Hgb 13.4 (12.0-16.0) g/dL Hct 41.7 (37.0-47.0) % MCV 87.6 (80-100) fL MCH 28.2 (27.0-34.0) pg MCHC 32.1 L (33.0-35.0) g/dL Plt Count 364 D (150-450) 10^3/uL Neut % (Auto) 77.6 H (42.2-75.2) % Lymph % (Auto) 11.5 L (20.5-50.1) % [place] % (Auto) 10.4 H (2-8) % Eos % (Auto) 0.4 L (1.0-3.0) % Baso % (Auto) 0.1 (0.0-1.0) % Add Manual Diff Yes Neutrophils % (Manual) 76 H (42-75) % Band Neutrophils % 1 % Lymphocytes % (Manual) 16 L (20-50) % Monocytes % (Manual) 7 (2-8) % PT 10.2 (9.0-12.0) SEC INR 1.0 (0.9-1.2) D-Dimer, Quantitative 1340 H (0-400) ng/mL Sodium 140 (136-145) mmol/L Potassium 4.2 (3.5-5.1) mmol/L Chloride 102 (98-107) mmol/L Carbon Dioxide 29 (21-32) mmol/L Anion Gap 13.2 H (7-13) mEq/L BUN 13 (7-18) mg/dL Creatinine 0.78 (0.55-1.02) mg/dL Est Cr Clr Drug Dosing 56.43 mL/min Estimated GFR (MDRD) > 60 BUN/Creatinine Ratio 16.7 (No establ ref range) Glucose 102 H (70-99) mg/dL Lactic Acid (0.4-2.0) mmol/L Calcium 8.5 (8.5-10.1) mg/dL Magnesium 2.4 (1.8-2.4) mg/dL Ferritin (8-252) mg/mL Total Bilirubin 0.6 (0.2-1.0) mg/dL AST 26 (15-37) U/L ALT 56 (14-59) U/L Alkaline Phosphatase 59 (46-116) U/L Lactate Dehydrogenase 295 H (81-234) U/L Troponin I High Sens 6 (<=51) pg/mL C-Reactive Protein 22.1 H (0.0-0.9) mg/dL Total Protein 7.2 (6.4-8.2) g/dL Albumin 2.6 L (3.4-5.0) g/dL Globulin 4.6 Albumin/Globulin Ratio 0.57 Amylase 30 (25-115) U/L 02/07/21 02/07/21 Range/Units 11:25 11:25 WBC (5.0-10.0) 10^3/uL RBC (4.2-5.4) 10^6/uL Hgb (12.0-16.0) g/dL Hct (37.0-47.0) % MCV (80-100) fL MCH (27.0-34.0) pg MCHC (33.0-35.0) g/dL Plt Count (150-450) 10^3/uL Neut % (Auto) (42.2-75.2) % Lymph % (Auto) (20.5-50.1) % [place] % (Auto) (2-8) % Eos % (Auto) (1.0-3.0) % Baso % (Auto) (0.0-1.0) % Add Manual Diff Neutrophils % (Manual) (42-75) % Band Neutrophils % % Lymphocytes % (Manual) (20-50) % Monocytes % (Manual) (2-8) % PT (9.0-12.0) SEC INR (0.9-1.2) D-Dimer, Quantitative (0-400) ng/mL Sodium (136-145) mmol/L Potassium (3.5-5.1) mmol/L Chloride (98-107) mmol/L Carbon Dioxide (21-32) mmol/L Anion Gap (7-13) mEq/L BUN (7-18) mg/dL Creatinine (0.55-1.02) mg/dL Est Cr Clr Drug Dosing mL/min Estimated GFR (MDRD) BUN/Creatinine Ratio (No establ ref range) Glucose (70-99) mg/dL Lactic Acid 1.0 (0.4-2.0) mmol/L Calcium (8.5-10.1) mg/dL Magnesium (1.8-2.4) mg/dL Ferritin 1409 H (8-252) mg/mL Total Bilirubin (0.2-1.0) mg/dL AST (15-37) U/L ALT (14-59) U/L Alkaline Phosphatase (46-116) U/L Lactate Dehydrogenase (81-234) U/L Troponin I High Sens (<=51) pg/mL C-Reactive Protein (0.0-0.9) mg/dL Total Protein (6.4-8.2) g/dL Albumin (3.4-5.0) g/dL Globulin Albumin/Globulin Ratio Amylase (25-115) U/L Result Diagrams: 02/07/21 11:25 02/07/21 11:25 - Problem List (1) Acute hypoxemic respiratory failure due to COVID-19 SNOMED Code(s): 009676182 ICD Code: U07.1 - COVID-19; J96.01 - ACUTE RESPIRATORY FAILURE WITH HYPOXIA Status: Acute Current Visit: Yes (2) Pneumonia due to COVID-19 virus SNOMED Code(s): 626634623170745828 ICD Code: U07.1 - COVID-19; J12.82 - PNEUMONIA DUE TO CORONAVIRUS DISEASE 2019 Status: Acute Current Visit: No Problem List Initiated/Reviewed/Updated: Yes Orders Last 24hrs: Active Orders 24 hr Category Date Time Status Admission Diagnosis [ADT] Routine ADT 02/07/21 15:56 Ordered Patient Status [ADT] Routine ADT 02/07/21 15:56 Active Antiembolic Devices [RC] PER UNIT ROUTINE Care 02/07/21 17:30 Ordered Oxygen Therapy [RC] PRN Care 02/07/21 17:29 Ordered Peripheral IV Care [RC] . DIRECTED Care 02/07/21 17:30 Ordered RT Aerosol Therapy [RC] ASDIRECTED Care 02/07/21 11:59 Active RT Post Treatment Assessment [RC] Click to Edit Care 02/07/21 17:25 Ordered RT Pre-Treatment Assessment [RC] Click to Edit Care 02/07/21 17:25 Ordered Up With Assistance [RC] ASDIRECTED Care 02/07/21 17:29 Ordered VTE/DVT Education [RC] PER UNIT ROUTINE Care 02/07/21 17:29 Ordered Vital Signs [RC] Q4H Care 02/07/21 17:29 Ordered Regular Diet [DIET] Diet 02/07/21 Breakfast Ordered Venous Doppler Lwr Ext Bi [US] Routine Exams 02/07/21 17:22 Stop Req Venous Doppler Lwr Ext Bi [US] Routine Exams 02/08/21 08:00 Ordered BASIC METABOLIC PANEL,BMP [CHEM] AM Lab 02/09/21 05:11 Ordered BASIC METABOLIC PANEL,BMP [CHEM] AM Lab 02/10/21 05:11 Ordered BASIC METABOLIC PANEL,BMP [CHEM] AM Lab 02/11/21 05:11 Ordered BASIC METABOLIC PANEL,BMP [CHEM] AM Lab 02/12/21 05:11 Ordered BASIC METABOLIC PANEL,BMP [CHEM] AM Lab 02/13/21 05:11 Ordered BASIC METABOLIC PANEL,BMP [CHEM] AM Lab 02/14/21 05:11 Ordered BASIC METABOLIC PANEL,BMP [CHEM] AM Lab 02/15/21 05:11 Ordered BASIC METABOLIC PANEL,BMP [CHEM] AM Lab 02/16/21 05:11 Ordered BASIC METABOLIC PANEL,BMP [CHEM] AM Lab 02/17/21 05:11 Ordered BASIC METABOLIC PANEL,BMP [CHEM] AM Lab 02/18/21 05:11 Ordered BASIC METABOLIC PANEL,BMP [CHEM] AM Lab 02/19/21 05:11 Ordered BASIC METABOLIC PANEL,BMP [CHEM] AM Lab 02/20/21 05:11 Ordered BASIC METABOLIC PANEL,BMP [CHEM] AM Lab 02/21/21 05:11 Ordered BASIC METABOLIC PANEL,BMP [CHEM] AM Lab 02/22/21 05:11 Ordered CBC WITH AUTO DIFF [HEME] AM Lab 02/09/21 05:11 Ordered CBC WITH AUTO DIFF [HEME] AM Lab 02/10/21 05:11 Ordered CBC WITH AUTO DIFF [HEME] AM Lab 02/11/21 05:11 Ordered CBC WITH AUTO DIFF [HEME] AM Lab 02/12/21 05:11 Ordered CBC WITH AUTO DIFF [HEME] AM Lab 02/13/21 05:11 Ordered CBC WITH AUTO DIFF [HEME] AM Lab 02/14/21 05:11 Ordered CBC WITH AUTO DIFF [HEME] AM Lab 02/15/21 05:11 Ordered CBC WITH AUTO DIFF [HEME] AM Lab 02/16/21 05:11 Ordered CBC WITH AUTO DIFF [HEME] AM Lab 02/17/21 05:11 Ordered CBC WITH AUTO DIFF [HEME] AM Lab 02/18/21 05:11 Ordered CBC WITH AUTO DIFF [HEME] AM Lab 02/19/21 05:11 Ordered CBC WITH AUTO DIFF [HEME] AM Lab 02/20/21 05:11 Ordered CBC WITH AUTO DIFF [HEME] AM Lab 02/21/21 05:11 Ordered CBC WITH AUTO DIFF [HEME] AM Lab 02/22/21 05:11 Ordered CULTURE BLOOD [BC] Stat Lab 02/07/21 12:53 Received CULTURE BLOOD [BC] Stat Lab 02/07/21 13:01 Received DD [D-DIMER QUANTITATIVE] [COAG] AM Lab 02/08/21 05:11 Ordered DD [D-DIMER QUANTITATIVE] [COAG] AM Lab 02/09/21 05:11 Ordered DD [D-DIMER QUANTITATIVE] [COAG] AM Lab 02/10/21 05:11 Ordered DD [D-DIMER QUANTITATIVE] [COAG] AM Lab 02/11/21 05:11 Ordered DD [D-DIMER QUANTITATIVE] [COAG] AM Lab 02/12/21 05:11 Ordered DD [D-DIMER QUANTITATIVE] [COAG] AM Lab 02/13/21 05:11 Ordered DD [D-DIMER QUANTITATIVE] [COAG] AM Lab 02/14/21 05:11 Ordered DD [D-DIMER QUANTITATIVE] [COAG] AM Lab 02/15/21 05:11 Ordered DD [D-DIMER QUANTITATIVE] [COAG] AM Lab 02/16/21 05:11 Ordered DD [D-DIMER QUANTITATIVE] [COAG] AM Lab 02/17/21 05:11 Ordered DD [D-DIMER QUANTITATIVE] [COAG] AM Lab 02/18/21 05:11 Ordered DD [D-DIMER QUANTITATIVE] [COAG] AM Lab 02/19/21 05:11 Ordered DD [D-DIMER QUANTITATIVE] [COAG] AM Lab 02/20/21 05:11 Ordered DD [D-DIMER QUANTITATIVE] [COAG] AM Lab 02/21/21 05:11 Ordered HEPATIC FUNCTION PANEL,[facility] [CHEM] AM Lab 02/08/21 05:11 Ordered HEPATIC FUNCTION PANEL,[facility] [CHEM] AM Lab 02/09/21 05:11 Ordered HEPATIC FUNCTION PANEL,[facility] [CHEM] AM Lab 02/10/21 05:11 Ordered HEPATIC FUNCTION PANEL,[facility] [CHEM] AM Lab 02/11/21 05:11 Ordered HEPATIC FUNCTION PANEL,[facility] [CHEM] AM Lab 02/12/21 05:11 Ordered HEPATIC FUNCTION PANEL,[facility] [CHEM] AM Lab 02/13/21 05:11 Ordered HEPATIC FUNCTION PANEL,[facility] [CHEM] AM Lab 02/14/21 05:11 Ordered HEPATIC FUNCTION PANEL,[facility] [CHEM] AM Lab 02/15/21 05:11 Ordered HEPATIC FUNCTION PANEL,[facility] [CHEM] AM Lab 02/16/21 05:11 Ordered HEPATIC FUNCTION PANEL,[facility] [CHEM] AM Lab 02/17/21 05:11 Ordered HEPATIC FUNCTION PANEL,[facility] [CHEM] AM Lab 02/18/21 05:11 Ordered HEPATIC FUNCTION PANEL,[facility] [CHEM] AM Lab 02/19/21 05:11 Ordered HEPATIC FUNCTION PANEL,[facility] [CHEM] AM Lab 02/20/21 05:11 Ordered HEPATIC FUNCTION PANEL,[facility] [CHEM] AM Lab 02/21/21 05:11 Ordered PROCALCITONIN [REF] DAILY Lab 02/08/21 05:00 Ordered PROCALCITONIN [REF] DAILY Lab 02/09/21 05:00 Ordered PROCALCITONIN [REF] DAILY Lab 02/10/21 05:00 Ordered PROCALCITONIN [REF] DAILY Lab 02/11/21 05:00 Ordered PROCALCITONIN [REF] DAILY Lab 02/12/21 05:00 Ordered PROCALCITONIN [REF] DAILY Lab 02/13/21 05:00 Ordered PROCALCITONIN [REF] DAILY Lab 02/14/21 05:00 Ordered PROCALCITONIN [REF] DAILY Lab 02/15/21 05:00 Ordered PROCALCITONIN [REF] DAILY Lab 02/16/21 05:00 Ordered PROCALCITONIN [REF] DAILY Lab 02/17/21 05:00 Ordered PROCALCITONIN [REF] DAILY Lab 02/18/21 05:00 Ordered PROCALCITONIN [REF] DAILY Lab 02/19/21 05:00 Ordered PROCALCITONIN [REF] DAILY Lab 02/20/21 05:00 Ordered PROCALCITONIN [REF] DAILY Lab 02/21/21 05:00 Ordered Acetaminophen [TylenoL] Med 02/07/21 17:29 Ordered 650 mg PO Q4H PRN Albuterol [Proventil HFA] Med 02/07/21 21:00 Ordered 2 puff INH QID Benzonatate [Tessalon Perles] Med 02/07/21 17:23 Ordered 100 mg PO Q8H PRN Cholecalciferol (Vitamin D3) [Vitamin D3] Med 02/08/21 09:00 Ordered 25 mcg PO DAILY Docusate Sodium [Colace] Med 02/07/21 17:29 Ordered 100 mg PO BID PRN Enoxaparin [Lovenox] Med 02/07/21 21:00 Ordered 100 mg SUBCUT Q12HR Multivitamins/Minerals [Vitamins and Minerals] Med 02/08/21 08:00 Ordered 1 tab PO WITHBREAKFAST Omeprazole Med 02/08/21 09:00 Ordered 20 mg PO DAILY Ondansetron [Zofran ODT] Med 02/07/21 17:29 Ordered 4 mg PO Q4H PRN Remdesivir 100 mg Med 02/08/21 17:30 Ordered Sodium Chloride 0.9% [Normal Saline AdvBag] 100 ml IV Q24H Sodium Chloride 0.9% [Saline Flush] Med 02/07/21 17:29 Ordered 10 ml FLUSH ASDIRECTED PRN Temazepam [Restoril] Med 02/07/21 17:29 Ordered 15 mg PO BEDTIME PRN dexAMETHasone Med 02/08/21 08:00 Ordered 6 mg PO DAILY@0800 oxyCODONE Med 02/07/21 17:29 Ordered 5 mg PO Q4H PRN Antiembolic Hose [OM.PC] Per Unit Routine Oth 02/07/21 17:30 Ordered Blood Culture x2 Reflex Set [OM.PC] Stat Oth 02/07/21 11:52 Ordered Peripheral IV Insertion Adult [OM.PC] Routine Oth 02/07/21 17:29 Ordered Saline Lock Insert [OM.PC] Routine Oth 02/07/21 17:29 Ordered Resuscitation Status Routine Resus Stat 02/07/21 17:29 Ordered Medication Orders Acetaminophen (Acetaminophen 325 Mg Tab) 650 mg PO Q4H PRN PRN Reason: Pain (Mild 1-3)/fever Albuterol (Albuterol 6.7 Gm Inhaler) gm INH QID [place] Benzonatate (Benzonatate 100 Mg Cap) 100 mg PO Q8H PRN PRN Reason: Cough Cholecalciferol (Cholecalciferol (Vitamin D3) 25 Mcg Tab) 25 mcg PO DAILY [place] Dexamethasone (Dexamethasone 6 Mg Tablet) 6 mg PO DAILY@0800 [place] Docusate Sodium (Docusate Sodium 100 Mg Cap) 100 mg PO BID PRN PRN Reason: Constipation Enoxaparin Sodium (Enoxaparin 100 Mg/1 Ml Syringe) 100 mg SUBCUT Q12HR [place] Remdesivir 100 mg/ Sodium (Chloride) 100 mls @ 100 mls/hr IV Q24H [place] Stop: 02/11/21 18:29 Multivitamins/Minerals (Multivitamins, Therapeutic With Minerals Tab) 1 tab PO WITHBREAKFAST [place] Omeprazole (Omeprazole 20 Mg Cap.Cr) 20 mg PO ACBREAKFAST [place] Ondansetron HCl (Ondansetron 4 Mg Tab.Dis) 4 mg PO Q4H PRN PRN Reason: nausea, able to take PO Oxycodone HCl (Oxycodone 5 Mg Tab) 5 mg PO Q4H PRN PRN Reason: Pain (moderate 4-6) Sodium Chloride (Sodium Chloride 0.9% 10 Ml Syringe) 10 ml FLUSH ASDIRECTED PRN PRN Reason: Keep Vein Open Temazepam (Temazepam 15 Mg Cap) 15 mg PO BEDTIME PRN PRN Reason: Sleep Assessment/Plan Comment:: Developed chills, cough, sob, body aches on 01/30. Tested positive for covid on 02/01 Symptoms worsened and received BAM, steroids on 02/05/21 Presented to ER with worse sob Noted to have hypoxemia with 83% o2 sat on RA Acute hypoxemic respiratory failure Currently requiring 100% VMASk support Will supplement oxygen as needed Acute covid 19 pneumonia Vaccination status: vaccinated Symptom onset: around 01/30/21 Covid test positive: 02/01/21 Treat with dexamethasone Treat with remdesivir Treat with mvi /vit d Follow daily cbc, bmp, trop, procal, ddimer Evaluations for concurrent bacterial pneumonia: Procalcitonin: pending Hold Abx for now Evaluations for thrombotic complications Ddimer: significantly increased CT Chest negative for PE Obtain LE US Prophylaxis: use therapeutic dose lovenox Code status: discussed on admission : DNR
[2021-02-07] MEDS: Acetaminophen 325 MG Tab PO PRN (21:19)
[2021-02-07] MEDS: Enoxaparin 100 MG/1 ML Syringe SUBCUT SCH (21:19)
[2021-02-07] MEDS: Albuterol 6.7 GM Inhaler INH SCH (21:20)
[2021-02-07] MEDS ORDERED: REMDESIVIR 200 MG in Sodium Chloride 0.9% 250 ML IV ONE (21:43)
[2021-02-07] MEDS ORDERED: REMDESIVIR 100 MG ONE (22:59)
[2021-02-08] MEDS: Omeprazole 20 MG Cap.CR PO SCH (05:57)
[2021-02-08] MEDS: Multivitamins, Therapeutic with Minerals Tab PO SCH (08:47)
[2021-02-08] MEDS: Cholecalciferol (Vitamin D3) 25 MCG Tab PO SCH (08:47)
[2021-02-08] MEDS: Dexamethasone 6 MG TABLET PO SCH (08:47)
[2021-02-08] MEDS: Enoxaparin 100 MG/1 ML Syringe SUBCUT SCH ×2 (08:47→22:10)
[2021-02-08] MEDS: Albuterol 6.7 GM Inhaler INH SCH ×4 (08:48→22:11)
[2021-02-08 09:32] LABS: ANION GAP 16.2 mEq/L (7-13); CHLORIDE,CL 103 mmol/L (98-107); SODIUM,NA 140 mmol/L (136-145)
[2021-02-08] MEDS: Acetaminophen 325 MG Tab PO PRN (11:01)
--- NOTE | 2021-02-08 12:09 | US ---
EXAMINATION: Venous Doppler Lwr Ext Bi SEX: Female AGE: 60 years CLINICAL HISTORY: 60-year-old COVID positive, obese (101 kg) female at bed rest with abnormally elevated serum D dimer. CT exam 07 February 2021 revealed "multilobar viral pneumonia; no sign of pulmonary embolism/infarct". Interpretation: Negative exam. No DVT lower extremities. No intraluminal echogenic thrombus and no abnormal compressibility deep veins of the calf (peroneal/posterior tibial vv's), popliteal vein behind the knee, or femoral veins proximally in either thigh or groin. Satisfactory augmentation venous waveforms confirm this deep venous circulation of both lower extremities. No popliteal or Loya's cyst.
--- NOTE | 2021-02-08 16:01 | PCM.PN ---
- General Info Date of Service: 02/08/21 Admission Dx/Problem (Free Text): Admission Diagnosis/Problem Admission Diagnosis/Problem Pneumonia Subjective Update: feeling better stable on nc oxygen has cough but decreased frequency, less associated chest pain no fever Functional Status: Reports: Pain Controlled, Tolerating Diet - Review of Systems General: Reports: Weakness. Denies: Fever Pulmonary: Reports: Shortness of Breath (better) Cardiovascular: Denies: Chest Pain Gastrointestinal: Denies: Abdominal Pain Genitourinary: Denies: Dysuria Psychiatric: Denies: Confusion - Patient Data Vitals - Most Recent: Last Vital Signs Temp 97.4 F 02/08/21 12:00 Pulse 73 02/08/21 12:00 Resp 15 02/08/21 12:00 BP 100/62 02/08/21 12:00 Pulse Ox 95 02/08/21 12:00 Weight - Most Recent: 229 lb I&O - Last 24 Hours: Intake & Output 02/08/21 02/08/21 02/08/21 06:59 14:59 22:59 Intake Total 120 240 Balance 120 240 Lab Results Last 24 Hours: Laboratory Results - last 24 hr 02/08/21 02/08/21 02/08/21 Range/Units 06:51 06:51 06:51 WBC (5.0-10.0) 10^3/uL RBC (4.2-5.4) 10^6/uL Hgb (12.0-16.0) g/dL Hct (37.0-47.0) % MCV (80-100) fL MCH (27.0-34.0) pg MCHC (33.0-35.0) g/dL Plt Count (150-450) 10^3/uL Neut % (Auto) (42.2-75.2) % Lymph % (Auto) (20.5-50.1) % Daniels % (Auto) (2-8) % Eos % (Auto) (1.0-3.0) % Baso % (Auto) (0.0-1.0) % Add Manual Diff D-Dimer, Quantitative 1070 H (0-400) ng/mL Sodium 140 (136-145) mmol/L Potassium 4.2 (3.5-5.1) mmol/L Chloride 103 (98-107) mmol/L Carbon Dioxide 25 (21-32) mmol/L Anion Gap 16.2 H (7-13) mEq/L BUN 18 (7-18) mg/dL Creatinine 0.62 (0.55-1.02) mg/dL Est Cr Clr Drug Dosing 67.58 mL/min Estimated GFR (MDRD) > 60 Glucose 101 H (70-99) mg/dL Calcium 8.7 (8.5-10.1) mg/dL Total Bilirubin 0.4 (0.2-1.0) mg/dL Direct Bilirubin 0.1 (0.0-0.2) mg/dL Indirect Bilirubin 0.3 AST 18 (15-37) U/L ALT 39 (14-59) U/L Alkaline Phosphatase 53 (46-116) U/L Total Protein 6.8 (6.4-8.2) g/dL Albumin 2.3 L (3.4-5.0) g/dL Globulin 4.5 Albumin/Globulin Ratio 0.51 11/11/21 Range/Units 06:51 WBC 10.1 H (5.0-10.0) 10^3/uL RBC 4.43 (4.2-5.4) 10^6/uL Hgb 12.5 (12.0-16.0) g/dL Hct 38.3 (37.0-47.0) % MCV 86.5 (80-100) fL MCH 28.2 (27.0-34.0) pg MCHC 32.6 L (33.0-35.0) g/dL Plt Count 324 (150-450) 10^3/uL Neut % (Auto) 71.0 (42.2-75.2) % Lymph % (Auto) 17.2 L (20.5-50.1) % Daniels % (Auto) 10.7 H (2-8) % Eos % (Auto) 1.0 (1.0-3.0) % Baso % (Auto) 0.1 (0.0-1.0) % Add Manual Diff D-Dimer, Quantitative (0-400) ng/mL Sodium (136-145) mmol/L Potassium (3.5-5.1) mmol/L Chloride (98-107) mmol/L Carbon Dioxide (21-32) mmol/L Anion Gap (7-13) mEq/L BUN (7-18) mg/dL Creatinine (0.55-1.02) mg/dL Est Cr Clr Drug Dosing mL/min Estimated GFR (MDRD) Glucose (70-99) mg/dL Calcium (8.5-10.1) mg/dL Total Bilirubin (0.2-1.0) mg/dL Direct Bilirubin (0.0-0.2) mg/dL Indirect Bilirubin AST (15-37) U/L ALT (14-59) U/L Alkaline Phosphatase (46-116) U/L Total Protein (6.4-8.2) g/dL Albumin (3.4-5.0) g/dL Globulin Albumin/Globulin Ratio [facility] Results Last 24 Hours: Microbiology 02/07/21 13:01 Aerobic Blood Culture - Preliminary Blood - Arm, Left NO GROWTH AFTER 1 DAY Anaerobic Blood Culture - Preliminary NO GROWTH AFTER 1 DAY 02/07/21 12:53 Aerobic Blood Culture - Preliminary Blood - Venous Anaerobic Blood Culture - Preliminary NO GROWTH AFTER 1 DAY Med Orders - Current: Current Medications Acetaminophen (Acetaminophen 325 Mg Tab) 650 mg PO Q4H PRN PRN Reason: Pain (Mild 1-3)/fever Last Admin: 02/08/21 11:01 Dose: 650 mg Documented by: Albuterol (Albuterol 6.7 Gm Inhaler) 0 gm INH QID [facility] Last Admin: 02/08/21 12:22 Dose: 2 puff Documented by: Benzonatate (Benzonatate 100 Mg Cap) 100 mg PO Q8H PRN PRN Reason: Cough Cholecalciferol (Cholecalciferol (Vitamin D3) 25 Mcg Tab) 25 mcg PO DAILY [facility] Last Admin: 02/08/21 08:47 Dose: 25 mcg Documented by: Dexamethasone (Dexamethasone 6 Mg Tablet) 6 mg PO DAILY@0800 [facility] Last Admin: 02/08/21 08:47 Dose: 6 mg Documented by: Docusate Sodium (Docusate Sodium 100 Mg Cap) 100 mg PO BID PRN PRN Reason: Constipation Enoxaparin Sodium (Enoxaparin 100 Mg/1 Ml Syringe) 100 mg SUBCUT Q12HR [facility] Last Admin: 02/08/21 08:47 Dose: 100 mg Documented by: Remdesivir 100 mg/ Sodium (Chloride) 100 mls @ 100 mls/hr IV Q24H [facility] Stop: 02/11/21 18:29 Multivitamins/Minerals (Multivitamins, Therapeutic With Minerals Tab) 1 tab PO WITHBREAKFAST [facility] Last Admin: 02/08/21 08:47 Dose: 1 tab Documented by: Omeprazole (Omeprazole 20 Mg Cap.Cr) 20 mg PO ACBREAKFAST [facility] Last Admin: 02/08/21 05:57 Dose: 20 mg Documented by: Ondansetron HCl (Ondansetron 4 Mg Tab.Dis) 4 mg PO Q4H PRN PRN Reason: nausea, able to take PO Oxycodone HCl (Oxycodone 5 Mg Tab) 5 mg PO Q4H PRN PRN Reason: Pain (moderate 4-6) Sodium Chloride (Sodium Chloride 0.9% 10 Ml Syringe) 10 ml FLUSH ASDIRECTED PRN PRN Reason: Keep Vein Open Temazepam (Temazepam 15 Mg Cap) 15 mg PO BEDTIME PRN PRN Reason: Sleep Discontinued Medications Albuterol/Ipratropium (Albuterol/Ipratropium 3.0-0.5 Mg/3 Ml Neb Soln) 3 ml NEB ONETIME ONE Stop: 02/07/21 12:00 Last Admin: 02/07/21 12:25 Dose: 3 ml Documented by: Dexamethasone (Dexamethasone 4 Mg/Ml Sdv) 6 mg IVPUSH ONETIME ONE Stop: 02/07/21 12:17 Last Admin: 02/07/21 12:40 Dose: 6 mg Documented by: Remdesivir 200 mg/ Sodium (Chloride) 250 mls @ 250 mls/hr IV ONETIME ONE Stop: 02/07/21 22:42 Last Admin: 02/07/21 23:28 Dose: 250 mls/hr Documented by: Remdesivir (Remdesivir) Confirm Administered Dose 100 mls @ as directed .ROUTE .STK-MED ONE Stop: 02/07/21 23:00 Last Admin: 02/08/21 02:43 Dose: Not Given Documented by: Iopamidol (Iopamidol 755 Mg/Ml 100 Ml Bottle) 100 ml IVPUSH ONETIME ONE Stop: 02/07/21 12:58 Last Admin: 02/07/21 14:25 Dose: 80 ml Documented by: Promethazine HCl/Codeine (Codeine/Promethazine 10-6.25 Mg/5 Ml Syrup 5 Ml Ud Cup) 10 ml PO ONETIME ONE Stop: 02/07/21 12:17 Last Admin: 02/07/21 12:40 Dose: 10 ml Documented by: - Exam General: Alert, Oriented Neck: Supple Lungs: Rhonchi Cardiovascular: Regular Rate, Regular Rhythm GI/Abdominal Exam: Normal Bowel Sounds, Soft, Non-Tender Extremities: No Pedal Edema - Patient Data Lab Results Last 24 hrs: Laboratory Results - last 24 hr 02/08/21 02/08/21 02/08/21 Range/Units 06:51 06:51 06:51 WBC (5.0-10.0) 10^3/uL RBC (4.2-5.4) 10^6/uL Hgb (12.0-16.0) g/dL Hct (37.0-47.0) % MCV (80-100) fL MCH (27.0-34.0) pg MCHC (33.0-35.0) g/dL Plt Count (150-450) 10^3/uL Neut % (Auto) (42.2-75.2) % Lymph % (Auto) (20.5-50.1) % Daniels % (Auto) (2-8) % Eos % (Auto) (1.0-3.0) % Baso % (Auto) (0.0-1.0) % Add Manual Diff D-Dimer, Quantitative 1070 H (0-400) ng/mL Sodium 140 (136-145) mmol/L Potassium 4.2 (3.5-5.1) mmol/L Chloride 103 (98-107) mmol/L Carbon Dioxide 25 (21-32) mmol/L Anion Gap 16.2 H (7-13) mEq/L BUN 18 (7-18) mg/dL Creatinine 0.62 (0.55-1.02) mg/dL Est Cr Clr Drug Dosing 67.58 mL/min Estimated GFR (MDRD) > 60 Glucose 101 H (70-99) mg/dL Calcium 8.7 (8.5-10.1) mg/dL Total Bilirubin 0.4 (0.2-1.0) mg/dL Direct Bilirubin 0.1 (0.0-0.2) mg/dL Indirect Bilirubin 0.3 AST 18 (15-37) U/L ALT 39 (14-59) U/L Alkaline Phosphatase 53 (46-116) U/L Total Protein 6.8 (6.4-8.2) g/dL Albumin 2.3 L (3.4-5.0) g/dL Globulin 4.5 Albumin/Globulin Ratio 0.51 02/08/21 Range/Units 06:51 WBC 10.1 H (5.0-10.0) 10^3/uL RBC 4.43 (4.2-5.4) 10^6/uL Hgb 12.5 (12.0-16.0) g/dL Hct 38.3 (37.0-47.0) % MCV 86.5 (80-100) fL MCH 28.2 (27.0-34.0) pg MCHC 32.6 L (33.0-35.0) g/dL Plt Count 324 (150-450) 10^3/uL Neut % (Auto) 71.0 (42.2-75.2) % Lymph % (Auto) 17.2 L (20.5-50.1) % Daniels % (Auto) 10.7 H (2-8) % Eos % (Auto) 1.0 (1.0-3.0) % Baso % (Auto) 0.1 (0.0-1.0) % Add Manual Diff D-Dimer, Quantitative (0-400) ng/mL Sodium (136-145) mmol/L Potassium (3.5-5.1) mmol/L Chloride (98-107) mmol/L Carbon Dioxide (21-32) mmol/L Anion Gap (7-13) mEq/L BUN (7-18) mg/dL Creatinine (0.55-1.02) mg/dL Est Cr Clr Drug Dosing mL/min Estimated GFR (MDRD) Glucose (70-99) mg/dL Calcium (8.5-10.1) mg/dL Total Bilirubin (0.2-1.0) mg/dL Direct Bilirubin (0.0-0.2) mg/dL Indirect Bilirubin AST (15-37) U/L ALT (14-59) U/L Alkaline Phosphatase (46-116) U/L Total Protein (6.4-8.2) g/dL Albumin (3.4-5.0) g/dL Globulin Albumin/Globulin Ratio Result Diagrams: 02/08/21 06:51 02/08/21 06:51 [facility] Results Last 24 hrs: Microbiology 02/07/21 13:01 Aerobic Blood Culture - Preliminary Blood - Arm, Left NO GROWTH AFTER 1 DAY Anaerobic Blood Culture - Preliminary NO GROWTH AFTER 1 DAY 02/07/21 12:53 Aerobic Blood Culture - Preliminary Blood - Venous Anaerobic Blood Culture - Preliminary NO GROWTH AFTER 1 DAY Sepsis Event Note - Evaluation Sepsis Screening Result: No Definite Risk - Focused Exam Vital Signs: Vital Signs Temp Pulse Resp BP Pulse Ox 02/08/21 12:00 97.4 F 73 15 100/62 95 02/08/21 08:38 98.3 F 63 16 127/79 93 L 02/08/21 04:56 97 F 55 L 18 138/71 96 - Problem List & Annotations (1) Acute hypoxemic respiratory failure due to COVID-19 SNOMED Code(s): 373244832 Code(s): U07.1 - COVID-19; J96.01 - ACUTE RESPIRATORY FAILURE WITH HYPOXIA Status: Acute Current Visit: Yes (2) Pneumonia due to COVID-19 virus SNOMED Code(s): 581452756876969797 Code(s): U07.1 - COVID-19; J12.82 - PNEUMONIA DUE TO CORONAVIRUS DISEASE 2019 Status: Acute Current Visit: No - Problem List Review Problem List Initiated/Reviewed/Updated: Yes - My Orders Last 24 Hours: My Active Orders 02/07/21 15:56 Admission Diagnosis [ADT] Routine Patient Status [ADT] Routine 02/07/21 17:22 Venous Doppler Lwr Ext Bi [US] Routine 02/07/21 17:23 Benzonatate [Tessalon Perles] 100 mg PO Q8H PRN 02/07/21 17:25 RT Post Treatment Assessment [RC] Click to Edit RT Pre-Treatment Assessment [RC] Click to Edit 02/07/21 17:29 Oxygen Therapy [RC] PRN Up With Assistance [RC] ASDIRECTED VTE/DVT Education [RC] PER UNIT ROUTINE Vital Signs [RC] Q4H Acetaminophen [TylenoL] 650 mg PO Q4H PRN Docusate Sodium [Colace] 100 mg PO BID PRN Ondansetron [Zofran ODT] 4 mg PO Q4H PRN Sodium Chloride 0.9% [Saline Flush] 10 ml FLUSH ASDIRECTED PRN Temazepam [Restoril] 15 mg PO BEDTIME PRN oxyCODONE 5 mg PO Q4H PRN Peripheral IV Insertion Adult [OM.PC] Routine Saline Lock Insert [OM.PC] Routine Resuscitation Status Routine 02/07/21 17:30 Antiembolic Devices [RC] PER UNIT ROUTINE Peripheral IV Care [RC] . DIRECTED Antiembolic Hose [OM.PC] Per Unit Routine 02/07/21 21:00 Albuterol [Proventil HFA] 0 gm INH QID Enoxaparin [Lovenox] 100 mg SUBCUT Q12HR 02/08/21 06:00 Omeprazole 20 mg PO ACBREAKFAST 02/08/21 06:51 PROCALCITONIN [REF] DAILY 02/08/21 08:00 Multivitamins/Minerals [Vitamins and Minerals] 1 tab PO WITHBREAKFAST dexAMETHasone 6 mg PO DAILY@0800 02/08/21 09:00 Cholecalciferol (Vitamin D3) [Vitamin D3] 25 mcg PO DAILY 02/08/21 17:30 Remdesivir 100 mg Sodium Chloride 0.9% [Normal Saline AdvBag] 100 ml IV Q24H 02/09/21 05:00 PROCALCITONIN [REF] DAILY 02/09/21 05:11 BASIC METABOLIC PANEL,BMP [CHEM] AM CBC WITH AUTO DIFF [HEME] AM DD [D-DIMER QUANTITATIVE] [COAG] AM HEPATIC FUNCTION PANEL,[facility] [CHEM] AM 02/10/21 05:00 PROCALCITONIN [REF] DAILY 02/10/21 05:11 BASIC METABOLIC PANEL,BMP [CHEM] AM CBC WITH AUTO DIFF [HEME] AM DD [D-DIMER QUANTITATIVE] [COAG] AM HEPATIC FUNCTION PANEL,[facility] [CHEM] AM 02/11/21 05:00 PROCALCITONIN [REF] DAILY 02/11/21 05:11 BASIC METABOLIC PANEL,BMP [CHEM] AM CBC WITH AUTO DIFF [HEME] AM DD [D-DIMER QUANTITATIVE] [COAG] AM HEPATIC FUNCTION PANEL,[facility] [CHEM] AM 02/12/21 05:00 PROCALCITONIN [REF] DAILY 02/12/21 05:11 BASIC METABOLIC PANEL,BMP [CHEM] AM CBC WITH AUTO DIFF [HEME] AM DD [D-DIMER QUANTITATIVE] [COAG] AM HEPATIC FUNCTION PANEL,[facility] [CHEM] AM 02/13/21 05:00 PROCALCITONIN [REF] DAILY 02/13/21 05:11 BASIC METABOLIC PANEL,BMP [CHEM] AM CBC WITH AUTO DIFF [HEME] AM DD [D-DIMER QUANTITATIVE] [COAG] AM HEPATIC FUNCTION PANEL,[facility] [CHEM] AM 02/14/21 05:00 PROCALCITONIN [REF] DAILY 02/14/21 05:11 BASIC METABOLIC PANEL,BMP [CHEM] AM CBC WITH AUTO DIFF [HEME] AM DD [D-DIMER QUANTITATIVE] [COAG] AM HEPATIC FUNCTION PANEL,[facility] [CHEM] AM 02/15/21 05:00 PROCALCITONIN [REF] DAILY 02/15/21 05:11 BASIC METABOLIC PANEL,BMP [CHEM] AM CBC WITH AUTO DIFF [HEME] AM DD [D-DIMER QUANTITATIVE] [COAG] AM HEPATIC FUNCTION PANEL,[facility] [CHEM] AM 02/16/21 05:00 PROCALCITONIN [REF] DAILY 02/16/21 05:11 BASIC METABOLIC PANEL,BMP [CHEM] AM CBC WITH AUTO DIFF [HEME] AM DD [D-DIMER QUANTITATIVE] [COAG] AM HEPATIC FUNCTION PANEL,[facility] [CHEM] AM 02/17/21 05:00 PROCALCITONIN [REF] DAILY 02/17/21 05:11 BASIC METABOLIC PANEL,BMP [CHEM] AM CBC WITH AUTO DIFF [HEME] AM DD [D-DIMER QUANTITATIVE] [COAG] AM HEPATIC FUNCTION PANEL,[facility] [CHEM] AM 02/18/21 05:00 PROCALCITONIN [REF] DAILY 02/18/21 05:11 BASIC METABOLIC PANEL,BMP [CHEM] AM CBC WITH AUTO DIFF [HEME] AM DD [D-DIMER QUANTITATIVE] [COAG] AM HEPATIC FUNCTION PANEL,[facility] [CHEM] AM 02/19/21 05:00 PROCALCITONIN [REF] DAILY 02/19/21 05:11 BASIC METABOLIC PANEL,BMP [CHEM] AM CBC WITH AUTO DIFF [HEME] AM DD [D-DIMER QUANTITATIVE] [COAG] AM HEPATIC FUNCTION PANEL,[facility] [CHEM] AM 02/20/21 05:00 PROCALCITONIN [REF] DAILY 02/20/21 05:11 BASIC METABOLIC PANEL,BMP [CHEM] AM CBC WITH AUTO DIFF [HEME] AM DD [D-DIMER QUANTITATIVE] [COAG] AM HEPATIC FUNCTION PANEL,[facility] [CHEM] AM 02/21/21 05:00 PROCALCITONIN [REF] DAILY 02/21/21 05:11 BASIC METABOLIC PANEL,BMP [CHEM] AM CBC WITH AUTO DIFF [HEME] AM DD [D-DIMER QUANTITATIVE] [COAG] AM HEPATIC FUNCTION PANEL,HFP [CHEM] AM 02/22/21 05:11 BASIC METABOLIC PANEL,BMP [CHEM] AM CBC WITH AUTO DIFF [HEME] AM - Plan Plan:: Developed chills, cough, sob, body aches on 01/30. Tested positive for covid on 02/01 Symptoms worsened and received BAM, steroids on 02/05/21 Presented to ER with worse sob Noted to have hypoxemia with 83% o2 sat on RA Acute hypoxemic respiratory failure improved Currently requiring NC oxygen support Will supplement oxygen as needed Acute covid 19 pneumonia Vaccination status: vaccinated Symptom onset: around 01/30/21 Covid test positive: 02/01/21 Treat with dexamethasone Treat with remdesivir Treat with mvi /vit d Follow daily cbc, bmp, trop, procal, ddimer Evaluations for concurrent bacterial pneumonia: Procalcitonin: pending Hold Abx for now Evaluations for thrombotic complications Ddimer: significantly increased CT Chest negative for PE, LE US negative for dvt Prophylaxis: use therapeutic dose lovenox Code status: discussed on admission : DNR
[2021-02-08] MEDS ORDERED: REMDESIVIR 100 MG in Sodium Chloride 0.9% 100 ML IV SCH (17:30)
[2021-02-08] MEDS: Benzonatate 100 MG Cap PO PRN (22:10)
[2021-02-09] MEDS: Omeprazole 20 MG Cap.CR PO SCH (05:48)
[2021-02-09] MEDS: Acetaminophen 325 MG Tab PO PRN (06:14)
[2021-02-09] MEDS: Benzonatate 100 MG Cap PO PRN (06:14)
[2021-02-09] MEDS: Multivitamins, Therapeutic with Minerals Tab PO SCH (07:41)
[2021-02-09] MEDS: Cholecalciferol (Vitamin D3) 25 MCG Tab PO SCH ×2 (07:41→09:48)
[2021-02-09] MEDS: Enoxaparin 100 MG/1 ML Syringe SUBCUT SCH ×2 (07:41→09:48)
[2021-02-09] MEDS: Dexamethasone 6 MG TABLET PO SCH (07:41)
[2021-02-09 08:56] LABS: ANION GAP 13.7 mEq/L (7-13); CHLORIDE,CL 107 mmol/L (98-107); SODIUM,NA 143 mmol/L (136-145)
[2021-02-09] MEDS ORDERED: guaiFENesin/Dextromethorphan 100-10 MG/5 ML Soln 5 ML Cup PO PRN (10:28)
[2021-02-09] MEDS: Albuterol 6.7 GM Inhaler INH SCH (10:56)
--- NOTE | 2021-02-09 12:13 | PCM.DCSUM1 ---
Discharge Summary - Hospital Course Free Text/Narrative:: Developed chills, cough, sob, body aches on 01/30. Tested positive for covid on 02/01 Symptoms worsened and received BAM, steroids on 02/05/21 Presented to ER with worse sob Noted to have hypoxemia with 83% o2 sat on RA Acute hypoxemic respiratory failure improved Currently requiring NC oxygen support 3 l/min nc kristian ldischarge with home oxygen Acute covid 19 pneumonia Vaccination status: vaccinated Symptom onset: around 01/30/21 Covid test positive: 02/01/21 Treat with dexamethasone Treated with remdesivir Treat with mvi /vit d Evaluations for concurrent bacterial pneumonia: Procalcitonin: low Hold Abx for now blood cx obtained on admission: coag neg staph - likely contaminant repeated Bc on 02/09 - follow Evaluations for thrombotic complications Ddimer: significantly increased on admission CT Chest negative for PE, LE US negative for dvt Prophylaxis: started with therapeutic dose lovenox ddimer improved will discharge hoem with sq lovenox prophylactic dose Diagnosis: Stroke: No - Discharge Data Discharge Date: 02/09/21 Discharge Disposition: Home, Self-Care 01 Condition: Good - Referral to Home Health Primary Care Physician: PCP None - Discharge Diagnosis/Problem(s) (1) Acute hypoxemic respiratory failure due to COVID-19 SNOMED Code(s): 411627895 ICD Code: U07.1 - COVID-19; J96.01 - ACUTE RESPIRATORY FAILURE WITH HYPOXIA Status: Acute Current Visit: Yes (2) Pneumonia due to COVID-19 virus SNOMED Code(s): 239494598592716250 ICD Code: U07.1 - COVID-19; J12.82 - PNEUMONIA DUE TO CORONAVIRUS DISEASE 2019 Status: Acute Current Visit: No - Patient Instructions Diet: Heart Healthy Diet Activity: As Tolerated - Discharge Plan *PRESCRIPTION DRUG MONITORING PROGRAM REVIEWED*: Not Applicable *COPY OF PRESCRIPTION DRUG MONITORING REPORT IN PATIENT WILL: Not Applicable Prescriptions/Med Rec: dexAMETHasone [Dexamethasone] 6 mg PO DAILY #14 tab Enoxaparin [Lovenox] 40 mg SQ DAILY #10 ml Dextromethorphan/guaiFENesin [Robitussin DM] 10 ml PO Q6H PRN #250 ml PRN Reason: Cough Cholecalciferol (Vitamin D3) [Vitamin D3] 25 mcg PO DAILY #14 tablet Multivitamins/Minerals [Vitamins and Minerals] 1 tab PO WITHBREAKFAST #30 tablet Home Medications: Home Meds Fluticasone Propion/Salmeterol [Fluticasone-Salmeterol 250-50] 1 puff INH BID 02/07/21 [History] Omeprazole 20 mg PO DAILY 02/07/21 [History] Cholecalciferol (Vitamin D3) [Vitamin D3] 25 mcg PO DAILY #14 tablet 02/09/21 [Rx] Dextromethorphan/guaiFENesin [Robitussin DM] 10 ml PO Q6H PRN #250 ml 02/09/21 [Rx] Enoxaparin [Lovenox] 40 mg SQ DAILY #10 ml 02/09/21 [Rx] Multivitamins/Minerals [Vitamins and Minerals] 1 tab PO WITHBREAKFAST #30 tablet 02/09/21 [Rx] dexAMETHasone [Dexamethasone] 6 mg PO DAILY #14 tab 02/09/21 [Rx] Oxygen Therapy Mode: Nasal Cannula Oxygen Flow Rate (L/min): 3 Referrals: Loreta Pat MD [Physician] - (Post hospital follow up appointment FridayFebruary 14 @ 11:00am. ) - Discharge Summary/Plan Comment DC Time >30 min.: Yes Total # of Minutes for Discharge Time: 35 min arranging home oxygen - General Info Date of Service: 02/09/21 Subjective Update: feeling better still cough, non productive stable on nc oxygen no fever able to ambulate Functional Status: Reports: Pain Controlled, Tolerating Diet, Ambulating - Review of Systems Pulmonary: Reports: Shortness of Breath (improved) Cardiovascular: Reports: Chest Pain (with cough) Gastrointestinal: Denies: Abdominal Pain Genitourinary: Denies: Dysuria Neurological: Denies: Confusion - Patient Data Vitals - Most Recent: Last Vital Signs Temp 97.8 F 02/09/21 08:00 Pulse 62 02/09/21 08:00 Resp 20 02/09/21 08:00 BP 94/62 02/09/21 08:00 Pulse Ox 93 L 02/09/21 08:00 Weight - Most Recent: 229 lb I&O - Last 24 hours: Intake & Output 02/08/21 02/09/21 02/09/21 22:59 06:59 14:59 Intake Total 740 400 Balance 740 400 Lab Results - Last 24 hrs: Laboratory Results - last 24 hr 02/08/21 02/09/21 02/09/21 Range/Units 06:51 06:00 06:00 WBC 11.6 H (5.0-10.0) 10^3/uL RBC 4.30 (4.2-5.4) 10^6/uL Hgb 12.0 (12.0-16.0) g/dL Hct 37.9 (37.0-47.0) % MCV 88.1 (80-100) fL MCH 27.9 (27.0-34.0) pg MCHC 31.7 L (33.0-35.0) g/dL Plt Count 438 D (150-450) 10^3/uL Neut % (Auto) 75.2 (42.2-75.2) % Lymph % (Auto) 15.2 L (20.5-50.1) % [place] % (Auto) 8.7 H (2-8) % Eos % (Auto) 0.8 L (1.0-3.0) % Baso % (Auto) 0.1 (0.0-1.0) % D-Dimer, Quantitative (0-400) ng/mL Sodium 143 (136-145) mmol/L Potassium 4.7 (3.5-5.1) mmol/L Chloride 107 (98-107) mmol/L Carbon Dioxide 27 (21-32) mmol/L Anion Gap 13.7 H (7-13) mEq/L BUN 20 H (7-18) mg/dL Creatinine 0.80 (0.55-1.02) mg/dL Est Cr Clr Drug Dosing 52.37 mL/min Estimated GFR (MDRD) > 60 Glucose 88 (70-99) mg/dL POC Glucose (70-99) mg/dL Calcium 8.1 L (8.5-10.1) mg/dL Total Bilirubin 0.4 (0.2-1.0) mg/dL Direct Bilirubin 0.1 (0.0-0.2) mg/dL Indirect Bilirubin 0.3 AST 14 L (15-37) U/L ALT 34 (14-59) U/L Alkaline Phosphatase 58 (46-116) U/L Total Protein 6.0 L (6.4-8.2) g/dL Albumin 2.4 L (3.4-5.0) g/dL Globulin 3.6 Albumin/Globulin Ratio 0.67 Procalcitonin 0.09 ng/mL 02/09/21 02/09/21 Range/Units 06:00 07:36 WBC (5.0-10.0) 10^3/uL RBC (4.2-5.4) 10^6/uL Hgb (12.0-16.0) g/dL Hct (37.0-47.0) % MCV (80-100) fL MCH (27.0-34.0) pg MCHC (33.0-35.0) g/dL Plt Count (150-450) 10^3/uL Neut % (Auto) (42.2-75.2) % Lymph % (Auto) (20.5-50.1) % [place] % (Auto) (2-8) % Eos % (Auto) (1.0-3.0) % Baso % (Auto) (0.0-1.0) % D-Dimer, Quantitative 602 H (0-400) ng/mL Sodium (136-145) mmol/L Potassium (3.5-5.1) mmol/L Chloride (98-107) mmol/L Carbon Dioxide (21-32) mmol/L Anion Gap (7-13) mEq/L BUN (7-18) mg/dL Creatinine (0.55-1.02) mg/dL Est Cr Clr Drug Dosing mL/min Estimated GFR (MDRD) Glucose (70-99) mg/dL POC Glucose 91 (70-99) mg/dL Calcium (8.5-10.1) mg/dL Total Bilirubin (0.2-1.0) mg/dL Direct Bilirubin (0.0-0.2) mg/dL Indirect Bilirubin AST (15-37) U/L ALT (14-59) U/L Alkaline Phosphatase (46-116) U/L Total Protein (6.4-8.2) g/dL Albumin (3.4-5.0) g/dL Globulin Albumin/Globulin Ratio Procalcitonin ng/mL JESSICA Results - Last 24 hrs: Microbiology 02/07/21 12:53 Aerobic Blood Culture - Preliminary Blood - Venous Anaerobic Blood Culture - Preliminary NO GROWTH AFTER 1 DAY 02/07/21 13:01 Aerobic Blood Culture - Preliminary Blood - Arm, Left NO GROWTH AFTER 1 DAY Anaerobic Blood Culture - Preliminary NO GROWTH AFTER 1 DAY Med Orders - Current: Current Medications Acetaminophen (Acetaminophen 325 Mg Tab) 650 mg PO Q4H PRN PRN Reason: Pain (Mild 1-3)/fever Last Admin: 02/09/21 06:14 Dose: 650 mg Documented by: Albuterol (Albuterol 6.7 Gm Inhaler) 0 gm INH QID [facility] [place] Last Admin: 02/09/21 10:56 Dose: 2 puff Documented by: Benzonatate (Benzonatate 100 Mg Cap) 100 mg PO Q8H PRN PRN Reason: Cough Last Admin: 02/09/21 06:14 Dose: 100 mg Documented by: Cholecalciferol (Cholecalciferol (Vitamin D3) 25 Mcg Tab) 25 mcg PO DAILY [facility] [place] Last Admin: 02/09/21 09:48 Dose: Not Given Documented by: Dexamethasone (Dexamethasone 6 Mg Tablet) 6 mg PO DAILY@0800 [facility] [place] Last Admin: 02/09/21 07:41 Dose: 6 mg Documented by: Docusate Sodium (Docusate Sodium 100 Mg Cap) 100 mg PO BID PRN PRN Reason: Constipation Enoxaparin Sodium (Enoxaparin 100 Mg/1 Ml Syringe) 100 mg SUBCUT Q12HR [facility] [place] Last Admin: 02/09/21 09:48 Dose: Not Given Documented by: Guaifenesin/Phenylephrine HCl (Guaifenesin/Dextromethorphan 100-10 Mg/5 Ml Soln 5 Ml Cup) 10 ml PO Q6H PRN PRN Reason: Cough Last Admin: 02/09/21 10:51 Dose: 10 ml Documented by: Remdesivir 100 mg/ Sodium (Chloride) 100 mls @ 100 mls/hr IV Q24H [facility] [place] Stop: 02/11/21 18:29 Last Admin: 02/08/21 16:53 Dose: 100 mls/hr Documented by: Multivitamins/Minerals (Multivitamins, Therapeutic With Minerals Tab) 1 tab PO WITHBREAKFAST [facility] [place] Last Admin: 02/09/21 07:41 Dose: 1 tab Documented by: Omeprazole (Omeprazole 20 Mg Cap.Cr) 20 mg PO ACBREAKFAST [facility] [place] Last Admin: 02/09/21 05:48 Dose: 20 mg Documented by: Ondansetron HCl (Ondansetron 4 Mg Tab.Dis) 4 mg PO Q4H PRN PRN Reason: nausea, able to take PO Oxycodone HCl (Oxycodone 5 Mg Tab) 5 mg PO Q4H PRN PRN Reason: Pain (moderate 4-6) Sodium Chloride (Sodium Chloride 0.9% 10 Ml Syringe) 10 ml FLUSH ASDIRECTED PRN PRN Reason: Keep Vein Open Temazepam (Temazepam 15 Mg Cap) 15 mg PO BEDTIME PRN PRN Reason: Sleep Discontinued Medications Albuterol/Ipratropium (Albuterol/Ipratropium 3.0-0.5 Mg/3 Ml Neb Soln) 3 ml NEB ONETIME ONE Stop: 02/07/21 12:00 Last Admin: 02/07/21 12:25 Dose: 3 ml Documented by: Dexamethasone (Dexamethasone 4 Mg/Ml Sdv) 6 mg IVPUSH ONETIME ONE Stop: 02/07/21 12:17 Last Admin: 02/07/21 12:40 Dose: 6 mg Documented by: Remdesivir 200 mg/ Sodium (Chloride) 250 mls @ 250 mls/hr IV ONETIME ONE Stop: 02/07/21 22:42 Last Admin: 02/07/21 23:28 Dose: 250 mls/hr Documented by: Remdesivir (Remdesivir) Confirm Administered Dose 100 mls @ as directed .ROUTE .STK-MED ONE Stop: 02/07/21 23:00 Last Admin: 02/08/21 02:43 Dose: Not Given Documented by: Iopamidol (Iopamidol 755 Mg/Ml 100 Ml Bottle) 100 ml IVPUSH ONETIME ONE Stop: 02/07/21 12:58 Last Admin: 02/07/21 14:25 Dose: 80 ml Documented by: Promethazine HCl/Codeine (Codeine/Promethazine 10-6.25 Mg/5 Ml Syrup 5 Ml Ud Cup) 10 ml PO ONETIME ONE Stop: 02/07/21 12:17 Last Admin: 02/07/21 12:40 Dose: 10 ml Documented by: - Exam Quality Assessment: Reports: Supplemental Oxygen General: Reports: Alert Lungs: Reports: Normal Respiratory Effort, Rhonchi Cardiovascular: Reports: Regular Rate, Regular Rhythm GI/Abdominal Exam: Normal Bowel Sounds, Soft, Non-Tender Extremities: No Pedal Edema
[2021-02-09 13:04] VITALS: BP 104/62; PULSE 82
[2021-02-09] MEDS ORDERED: Succinylcholine 200 MG/10 ML MDV IV ONE (14:44)
[2021-02-09] MEDS ORDERED: Etomidate 2 MG/ML 20 ML SDV IVPUSH ONE (14:44)
[2021-02-09] MEDS ORDERED: Rocuronium 100 MG/10 ML MDV IV ONE (14:44)
== END 2021-02-09 14:45 | disposition home or self-care (01) | DRG 177 ==
LOC: DL.ED 10:44 → DL.MS 16:05
PROVIDERS: ADMIT Internal Medicine; ATTEND Internal Medicine
PROC: XW033E5 Introduction of Remdesivir Anti-infective into Peripheral Vein, Percutaneous Approach, New Technology Group 5 (ICD-10-PCS; principal; 2021-02-07)
PROC: 3E0333Z Introduction of Anti-inflammatory into Peripheral Vein, Percutaneous Approach (ICD-10-PCS; 2021-02-07)
PROC: 3E0DX3Z Introduction of Anti-inflammatory into Mouth and Pharynx, External Approach (ICD-10-PCS; 2021-02-09)
DX: U07.1 COVID-19 (principal); J12.82 Pneumonia due to coronavirus disease 2019; J96.01 Acute respiratory failure with hypoxia; Z68.41 Body mass index [BMI] 40.0-44.9, adult; R79.1 Abnormal coagulation profile; H54.7 Unspecified visual loss; K57.90 Diverticulosis of intestine, part unspecified, without perforation or abscess without bleeding; E66.9 Obesity, unspecified; Z86.19 Personal history of other infectious and parasitic diseases; Z79.899 Other long term (current) drug therapy
CPT/HCPCS: 36415; 71260; 80048; 80053; 80076; 82150; 82728; 82947; 83605; 83615; 83735; 84145; 84484; 85025; 85379; 85610; 86140; 87040; 87077; 87186; 93005; 93970; 94640; 96374; 99285-25; A9270-GY; J0330; J1100; J1650; J3490; J7050; J7620-GY; J8540; Q9967